=== PATIENT | male | born 1990 | race Caucasian/White ===

== ENCOUNTER 2016-06-17 08:19 | Emergency (ER) | payer OTHER ==
[2016-06-17 08:23] VITALS: TEMP 98.1
--- NOTE | 2016-06-17 08:56 | EDPHY ---
H & P Time Seen by Provider: 06/17/16 08:53 HPI/ROS: Chief complaint. Cough HPI. 25-year-old male cough for 2 weeks. Has had some fairly significant coughing fits and feels short of breath during his cough episode but not between times. No history of asthma or lung disease. His cough is slightly productive of mucus. No fever. Travel back to the [facility] at the beginning of symptoms. Otherwise no foreign travel. No fever. No chest discomfort or abdominal pain. 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 no fever/chills, no weakness Eyes. no problems with vision ENT. Slight sore throat, slight nasal drainage Cardiovascular. no chest pain Respiratory. Productive cough with some shortness of breath during cough episodes Abdominal. no abdominal pain, no nausea/vomiting, no diarrhea . no problems urinating MS. no calf pain/swelling, no neck/back pain, no joint pain Skin. no rash Lymph. no swollen glands Neuro. no headache, no dizziness, no difficulty walking or with speech Past Medical/Surgical History: Healthy Social History: Single, nonsmoker, no alcohol Smoking Status: Never smoked Physical Exam: General Appearance: Alert well-developed male mild distress vital signs are stay Eyes: Pupils equal and round no pallor or injection. ENT, tympanic membranes are normal. Pharynx slightly injected without exudate. No evidence of mass Respiratory: No retractions mild inspiratory expiratory rhonchi. Decreased breath sounds right lung base Cardiovascular: Regular rate and rhythm. Gastrointestinal: Abdomen is soft and nontender, no masses, bowel sounds normal. Neurological: Awake and alert, sensory and motor exams grossly normal. Skin: Warm and dry, no rashes. Musculoskeletal: Neck is supple nontender. Extremities symmetrical, full range of motion. Psychiatric: Patient is oriented X 3, there is no agitation. Constitutional: Initial Vital Signs Temperature (C) 36.7 C 06/17/16 08:20 Heart Rate 68 06/17/16 08:20 Respiratory Rate 14 06/17/16 08:20 Blood Pressure 121/81 H 06/17/16 08:20 O2 Sat (%) 95 06/17/16 08:20 O2 Delivery Mode Room Air Allergies/Adverse Reactions: No Known Allergies Allergy (Unverified 05/16/16 17:53) Home Medications: Medication Instructions Recorded Azithromycin [Zithromax] 250 mg PO DAILY #6 tab 06/17/16 HYDROcodone/HOMATROPINE HYCODA 1 tsp PO Q4-6PRN PRN #100 ml 06/17/16 [Hycodan Syrup (*)] Medical Decision Making - Diagnostics Imaging: One-view chest x-ray interpreted by me is consistent with bronchitis. No evidence for pneumonia ED Course/Re-evaluation: Re-evaluation at 9:20 a.m.. Patient is stable. The patient and I discussed imaging study results, treatment plan including criteria for return. We discussed that this may well be viral. He expresses understanding and agreement Differential Diagnosis: I considered influenza, viral syndrome, pneumonia Departure - Departure Disposition: Home, Routine, Self-Care Clinical Impression: Acute bronchitis Qualifiers: Bronchitis organism: unspecified organism Qualifier Code: (J20.9) Acute bronchitis, unspecified Condition: Good Instructions: Acute Bronchitis (ED) Additional Instructions: Drink plenty of fluids and stay hydrated. Cough medicine to help with cough. Zithromax as antibiotic. Return for worsening symptoms. Recheck in 2-3 days if not improving Referrals: NONE *PRIMARY CARE P,. [Primary Care Provider] - As per Instructions Naz Villar MD [Medical Doctor] - 2-3 days, if not improved Prescriptions: HYDROcodone/HOMATROPINE HYCODA [Hycodan Syrup (*)] 1 tsp PO Q4-6PRN PRN #100 ml PRN Reason: Cough, Moderate Azithromycin [Zithromax] 250 mg PO DAILY #6 tab
--- NOTE | 2016-06-17 09:22 | DX ---
Portable Chest June 17, 2016 0907 hours Clinical Indications: Cough for 2 weeks in a smoker. Findings: Frontal view (only) shows clear lungs and no masses. Heart size and pulmonary vessels gladys ear normal. No evidence of pleural effusion. There is mild central bronchial wall thickening Impression: Mild airways disease. No acute cardiopulmonary process.
[2016-06-17 09:44] VITALS: BP 120/86; PULSE 72; RESP 18; O2SAT 96
== END 2016-06-17 09:41 | disposition home or self-care (01) ==
DX: J20.9 Acute bronchitis, unspecified (principal)

== ENCOUNTER 2016-09-29 15:13 | Emergency (ER) | payer OTHER ==
[2016-09-29 15:17] VITALS: RESP 16
[2016-09-29] MEDS ORDERED: ONDANSETRON DISINTEGRATING 4 MG TAB PO ONE (15:21)
--- NOTE | 2016-09-29 15:37 | EDPHY ---
H & P Stated Complaint: Fell skiing;+helmet,hit head, no LOC;memory is "fuzzy" Source: Patient, Family Exam Limitations: No limitations - Personal History Current Tetanus Diphtheria and Acellular Pertussis (TDAP): Yes - Medical/Surgical History Hx Asthma: No Hx Chronic Respiratory Disease: No Hx Diabetes: No Hx Cardiac Disease: No Hx Renal Disease: No Hx Cirrhosis: No Hx Alcoholism: No Hx HIV/AIDS: No Hx Splenectomy or Spleen Trauma: No Other PMH: DENIES - Social History Smoking Status: Never smoked HPI/ROS: CHIEF COMPLAINT: Head injury, confusion HISTORY OF PRESENT ILLNESS: Patient skiing this afternoon without a helmet when he crashed on a jump. This was after "catching some air." His friend at bedside was there with him. He said that he was able to get up and ski down the rest of the mountain. Since then he has had headache in the occiput. He has had cloudy thought and confusion. He has had repetitive questioning per friends. He does not remember the events of this morning or over the past few weeks. No other areas of injury. The headache is moderate to severe. Worse with movement. Some nausea. No vomiting. No other associated complaints or modifying factors. REVIEW OF SYSTEMS: Ten systems reviewed and are negative unless otherwise noted in the HPI PERTINENT MEDICAL HISTORY: Previous concussion EXAMINATION General Appearance: Alert, no distress Head: normocephalic, atraumatic. No hematoma. No depression. No crepitus. No laceration Eyes: Pupils equal and round, no conjunctival pallor or injection. EOMs intact. No nystagmus. ENT, Mouth: Mucous membranes moist. Uvula midline. No erythema or edema. Neck: Normal inspection, supple, non-tender. No crepitus, step-off or deformity. Trachea is midline. Respiratory: Lungs are clear to auscultation. No wheezing, rhonchi or crackles. Cardiovascular: Regular rate and rhythm. No murmur. Pulses intact distally. Gastrointestinal: Abdomen is soft and nontender Back: non-tender, no bony abnormalities Neurological: Alert to person, place and time. Disoriented to scenario. GCS is 15. Strength is 5/5 in all 4 limbs patellar reflexes are symmetric. No pronator drift. No dysmetria. Skin: Warm and dry, no rash. No lacerations abrasions or contusions Extremities: Nontender, no pedal edema Psychiatric: Mood and affect normal DIFFERENTIAL DIAGNOSES: Including but not limited to concussion, skull fracture, intracranial hemorrhage , cerebral edema, cerebral contusion, post concussion syndrome MDM: 3:30 p.m. Skiing injury without a helmet. He describes blunt, closed head injury. He does have post concussive complaints. No definite loss of consciousness was appreciated. He has no focal deficits on examination. CT scan of the head has been ordered due to amnesia of event greater than 30 minutes preceding the injury with a moderate mechanism. 4:10 p.m. Notified by radiologist Dr. Brewster. CT scan of the head is unremarkable for any acute findings. 4:25 p.m. I have re-evaluated the patient. He remains awake and alert in no acute distress. He still is amnestic to certain events this morning and over the past 2 weeks. He has no focal deficits on examination. He is ambulating without assistance. He has 2 friends at bedside who live with him. They are comfortable with taking him home. I suspect he has concussive syndromes and will need to follow up with Dr. Wills for further care. He is to return to the ER should he have any worsening headache, vomiting, bruising around the eyes or behind the ears, runny nose or changes in his behavior. Patient is comfortable with this plan and will be discharged home in stable condition. SUPERVISION: This patient was independently evaluated without direct examination by the attending physician. Case was discussed with attending physician. Case discussed with Dr. Farooq ([facility]) Constitutional: Initial Vital Signs Temperature (C) 97.7 F 09/29/16 15:15 Heart Rate 98 09/29/16 15:15 Respiratory Rate 16 09/29/16 15:15 Blood Pressure 159/74 H 09/29/16 15:15 O2 Sat (%) 96 09/29/16 15:15 O2 Delivery Mode Room Air Allergies/Adverse Reactions: No Known Allergies Allergy (Verified 09/29/16 15:14) Home Medications: Medication Instructions Recorded Ondansetron Odt [Zofran Odt 4 mg 4 mg PO Q6 PRN #12 tab 09/29/16 (*)] Medical Decision Making - Diagnostics Imaging Results: Imaging Impressions Head CT 09/29/16 15:33 Impression: Negative noncontrast CT of the head with no intracranial posttraumatic sequela identified. Results called and discussed with Davidson Maldonado PA-C on 09/29/2016 at 16:06 ED Course/Re-evaluation: The patient was evaluated and managed by the physician's research study assistant. My cosignature indicates that I reviewed the chart and I agree with the findings and plan of care as documented. I am the secondary supervising physician. ( Nusrat Farooq) - Data Points Medications Given: Discontinued Medications Ondansetron HCl (Zofran Odt) 4 mg PO EDNOW ONE Stop: 09/29/16 15:22 Last Admin: 09/29/16 15:29 Dose: 4 mg Departure - Departure Disposition: Home, Routine, Self-Care Clinical Impression: Head injury Qualifiers: Encounter type: initial encounter Qualified Code(s): S09.90XA - Unspecified injury of head, initial encounter Concussion Qualifiers: Encounter type: initial encounter Loss of consciousness presence/duration: without LOC Qualified Code(s): S06.0X0A - Concussion without loss of consciousness, initial encounter Condition: Good Instructions: Concussion (ED), Post Concussion Syndrome (ED) Additional Instructions: Post concussion precautions as discussed. Follow up with primary care physician Dr. Wills. Return to ER for worsening headache, bruising, bleeding, vomiting, double vision Referrals: Wendy Wills MD [Medical Doctor] - As per Instructions Stand Alone Forms: Work Excuse Prescriptions: Ondansetron Odt [Zofran Odt 4 mg (*)] 4 mg PO Q6 PRN #12 tab PRN Reason: Nausea/Vomiting, Use 1st
[2016-09-29 16:17] VITALS: TEMP 98.4
[2016-09-29 16:39] VITALS: BP 128/80; PULSE 71; O2SAT 96
== END 2016-09-29 16:40 | disposition home or self-care (01) ==
DX: S06.0X0A Concussion without loss of consciousness, initial encounter (principal); V00.321A Fall from snow-skis, initial encounter; Y92.828 Other wilderness area as the place of occurrence of the external cause; Y93.23 Activity, snow (alpine) (downhill) skiing, snowboarding, sledding, tobogganing and snow tubing